=== PATIENT | female | born 1960 | race Caucasian/White ===

== ENCOUNTER 2016-10-12 05:43 | Emergency (ER) | payer BC, OTHER ==
[2016-10-12 05:51] VITALS: PULSE 85; TEMP 98.1
[2016-10-12] MEDS ORDERED: NS 1,000 ML IV ONE (05:52)
[2016-10-12] MEDS ORDERED: MECLIZINE HCL 25 MG TAB PO ONE (05:53)
[2016-10-12] MEDS ORDERED: DIAZEPAM 10 MG/2 ML SYR IVP ONE (05:53)
--- NOTE | 2016-10-12 05:57 | EDPHY ---
H & P Stated Complaint: Nausea/Vertigo Source: Patient - Personal History Current Tetanus/Diphtheria Vaccine: Unsure Current Tetanus Diphtheria and Acellular Pertussis (TDAP): Unsure - Medical/Surgical History Hx Asthma: No Hx Chronic Respiratory Disease: No Hx Diabetes: No Hx Cardiac Disease: No Hx Renal Disease: No Hx Cirrhosis: No Hx Alcoholism: No Hx HIV/AIDS: No Hx Splenectomy or Spleen Trauma: No Other PMH: None stated. - Social History Smoking Status: Former smoker HPI/ROS: HPI CHIEF COMPLAINT: Dizziness with associated nausea HISTORY OF PRESENT ILLNESS: This patient very pleasant 56-year-old female hormone replacement while otherwise healthy does not take any daily medications except hormones and vitamins, she denies ever having history of hypertension cardiovascular disease or stroke. She presents emergency room by EMS for dizziness. She describes as room spinning. She states this woke her from sleep around 2 o'clock 230 in the morning suddenly. It is worse with head movement. No ringing in her ears. She rather severe with associated nausea but no vomiting. Additionally she tells me she has some posterior neck pain associated with that no headache. No double vision. Additionally she tells me her jaw felt tight. No chest pain or shortness of breath. The dizziness persisted for worse with head movement or any direction of movement of her head. She has had this happen to her approximately a month ago but was never seen by a medical provider. She could not get the roof top spinning so she decided call 911. She arrived in the emergency room with ongoing dizziness. From a private residence. Past Medical History: Hormone replacement and daily vitamin use Past Surgical History: No recent surgery Social History: Denies daily use drugs alcohol tobacco products. Family History: Noncontributory ROS REVIEW OF SYSTEMS: A comprehensive 10 point review of systems is otherwise negative aside from elements mentioned in the history of present illness. Exam Constitutional anxious, triage nursing summary reviewed, vital signs reviewed, awake/alert. Eyes normal conjunctivae and sclera, EOMI, PERRLA. HENT normal inspection, atraumatic, moist mucus membranes, no epistaxis, neck supple/ no meningismus, no raccoon eyes. Respiratory clear to auscultation bilaterally, normal breath sounds, no respiratory distress, no wheezing. Cardiovascular rate normal, regular rhythm, no murmur, no edema, distal pulses normal. Gastrointestinal soft, non-tender, no rebound, no guarding, normal bowel sounds, no distension, no pulsatile mass. Genitourinary no CVA tenderness. Musculoskeletal no midline vertebral tenderness, full range of motion, no calf swelling, no tenderness of extremities, no meningismus, good pulses, neurovascularly intact. Skin pink, warm, & dry, no rash, skin atraumatic. Neurologic awake, alert and oriented x 3, AAOx3, moves all 4 extremities equally, motor intact, sensory intact, CN II-XII intact, normal cerebellar, normal vision, normal speech. No nystagmus. Psychiatric normal mood/affect. Heme/Lymph/Immune no lymphadenopathy. Differential Diagnosis: Includes but is not limited to in a particular order acute positional vertigo, Meniere's disease, posterior circulation stroke Medical Decision Making: Given this patient's having posterior neck pain and dizziness most likely benign positional vertigo however given the neck pain and severe dizziness will perform CT angiogram head and neck. She will be medicated with IV fluids and Valium 2.5 mg of meclizine 25 mg. Check electrolytes. And re-evaluate. Re-evaluation: EKG interpretation by me on record in [facility] system. Impression time of EKG 6:08 a.m., this is sinus rhythm rate of 73, do not appreciate acute ischemic changes there is T-wave inversion in V2. No ST elevation. Normal intervals. Otherwise unremarkable EKG. 0650AM: I did re-evaluate the patient at this time she is feeling better and meclizine and Valium. She still does have vertiginous symptoms with head movement. I felt that it would be reasonable to admit her for vertigo. Her CT angiogram head and neck are pending at this time. She does tell me she is a [facility] patient will check with [facility] this see if they are okay with her being admitted here. 0711AM: Did re-evaluate the patient at this time. She was up ambulating to the bathroom and felt comfortable. She would like to go home. Her CT angiogram still pending needs to be followed up. I will give prescription for meclizine and Valium. She declined hospital admission. I did speak with [facility] she declining transfer to another hospital or admission here. She tells me she feels better and would like to go home. She understands she should follow up with her primary care doctor. (Gilberto Burris) Constitutional: Initial Vital Signs Temperature (C) 36.7 C 10/12/16 05:48 Heart Rate 85 10/12/16 05:48 Respiratory Rate 18 10/12/16 05:48 Blood Pressure 135/93 H 10/12/16 05:48 O2 Sat (%) 98 10/12/16 05:48 O2 Delivery Mode Room Air Allergies/Adverse Reactions: codeine Allergy (Verified 10/12/16 05:52) gluten Allergy (Verified 10/12/16 05:52) Home Medications: Medication Instructions Recorded Estrogen,Con/M-Progest Acet 10/12/16 Meclizine HCl [Meclizine HCl 25 mg 25 mg PO BID #0 tab 10/12/16 (RX,OTC)] Meclizine HCl [Meclizine HCl 25 mg 25 mg PO BID #15 tab 10/12/16 (RX,OTC)] TESTOSTERONE 10/12/16 Medical Decision Making ED Course/Re-evaluation: [address] Burris pending CT angiogram results. If these are negative patient will be discharged home with outpatient follow-up. 0725 CT angiogram of the head neck is negative for acute vertebral artery dissection or other pathological process at this time. Patient will be discharged per Dr. Burris plan. (Ángel Luong) - Data Points Laboratory Results: Laboratory Results 10/12/16 Unknown 10/12/16 Unknown 10/12/16 10/12/16 10/12/16 Unknown Unknown Unknown WBC 7.41 10^3/uL 10^3/uL (3.80-9.50) RBC 4.58 10^6/uL 10^6/uL (4.18-5.33) Hgb 14.8 g/dL g/dL (12.6-16.3) POC Hgb Hct 44.8 % % (38.0-47.0) POC Hct MCV 97.8 fL fL (81.5-99.8) MCH 32.3 pg pg (27.9-34.1) MCHC 33.0 g/dL g/dL (32.4-36.7) RDW 13.0 % % (11.5-15.2) Plt Count 226 10^3/uL 10^3/uL (150-400) MPV 10.9 fL fL (8.7-11.7) Neut % (Auto) 45.9 % % (39.3-74.2) Lymph % (Auto) 43.5 % % (15.0-45.0) [place] % (Auto) 7.2 % % (4.5-13.0) Eos % (Auto) 2.2 % % (0.6-7.6) Baso % (Auto) 0.9 % % (0.3-1.7) Nucleat RBC Rel Count 0.0 % % (0.0-0.2) Absolute Neuts (auto) 3.41 10^3/uL 10^3/uL (1.70-6.50) Absolute Lymphs (auto) 3.22 10^3/uL H 10^3/uL (1.00-3.00) Absolute Monos (auto) 0.53 10^3/uL 10^3/uL (0.30-0.80) Absolute Eos (auto) 0.16 10^3/uL 10^3/uL (0.03-0.40) Absolute Basos (auto) 0.07 10^3/uL 10^3/uL (0.02-0.10) Absolute Nucleated RBC 0.00 10^3/uL 10^3/uL (0-0.01) Immature Gran % 0.3 % % (0.0-1.1) Immature Gran # 0.02 10^3/uL 10^3/uL (0.00-0.10) PT 11.7 SEC L SEC (12.0-15.0) INR 0.87 (0.83-1.16) APTT 30.1 SEC SEC (23.0-38.0) POC Sodium Sodium 142 mEq/L mEq/L (134-144) POC Potassium Potassium 4.0 mEq/L mEq/L (3.5-5.2) POC Chloride Chloride 104 mEq/L mEq/L (97-110) Carbon Dioxide 25 mEq/l mEq/l (22-31) Anion Gap 13 mEq/L mEq/L (8-16) POC BUN BUN 18 mg/dL mg/dL (7-23) Creatinine 0.9 mg/dL mg/dL (0.6-1.0) POC Creatinine Estimated GFR > 60 Glucose 100 mg/dL mg/dL (70-100) POC Glucose Calcium 9.6 mg/dL mg/dL (8.5-10.4) Magnesium 2.0 mg/dL mg/dL (1.6-2.3) Total Bilirubin 0.4 mg/dL mg/dL (0.1-1.4) Conjugated Bilirubin 0.3 mg/dL mg/dL (0.0-0.5) Unconjugated Bilirubin 0.1 mg/dL mg/dL (0.0-1.1) AST 26 IU/L IU/L (14-46) ALT 32 IU/L IU/L (9-52) Alkaline Phosphatase 53 IU/L IU/L (38-126) Troponin I < 0.012 ng/mL ng/mL (0.000-0.034) NT-Pro-B Natriuret Pep 33 pg/mL pg/mL (0-125) Total Protein 7.2 g/dL g/dL (6.3-8.2) Albumin 4.4 g/dL g/dL (3.5-5.0) Urine Color Urine Appearance Urine pH Ur Specific [place] Urine Protein Urine Ketones Urine Blood Urine Nitrate Urine Bilirubin Urine Urobilinogen Ur Leukocyte Esterase Urine Glucose 10/12/16 10/12/16 07:03 05:52 WBC RBC Hgb POC Hgb 15.3 gm/dL gm/dL (12.6-16.3) Hct POC Hct 45 % % (38-47) MCV MCH MCHC RDW Plt Count MPV Neut % (Auto) Lymph % (Auto) [place] % (Auto) Eos % (Auto) Baso % (Auto) Nucleat RBC Rel Count Absolute Neuts (auto) Absolute Lymphs (auto) Absolute Monos (auto) Absolute Eos (auto) Absolute Basos (auto) Absolute Nucleated RBC Immature Gran % Immature Gran # PT INR APTT POC Sodium 143 mEq/L mEq/L (134-144) Sodium POC Potassium 3.7 mEq/L mEq/L (3.3-5.0) Potassium POC Chloride 103 mEq/L mEq/L (97-110) Chloride Carbon Dioxide Anion Gap POC BUN 19 mg/dL mg/dL (7-23) BUN Creatinine POC Creatinine 1.0 mg/dL mg/dL (0.6-1.0) Estimated GFR Glucose POC Glucose 108 mg/dL H mg/dL (70-100) Calcium Magnesium Total Bilirubin Conjugated Bilirubin Unconjugated Bilirubin AST ALT Alkaline Phosphatase Troponin I NT-Pro-B Natriuret Pep Total Protein Albumin Urine Color PALE YELLOW Urine Appearance CLEAR Urine pH 6.0 (5.0-7.5) Ur Specific [place] 1.033 H (1.002-1.030) Urine Protein NEGATIVE (NEGATIVE) Urine Ketones NEGATIVE (NEGATIVE) Urine Blood NEGATIVE (NEGATIVE) Urine Nitrate NEGATIVE (NEGATIVE) Urine Bilirubin NEGATIVE (NEGATIVE) Urine Urobilinogen NEGATIVE EU EU (0.2-1.0) Ur Leukocyte Esterase NEGATIVE (NEGATIVE) Urine Glucose NEGATIVE (NEGATIVE) Medications Given: Discontinued Medications Diazepam (Valium Injection) 2.5 mg IVP EDNOW ONE Stop: 10/12/16 05:54 Last Admin: 10/12/16 06:08 Dose: 2.5 mg Sodium Chloride (Ns) 1,000 mls @ 0 mls/hr IV EDNOW ONE; Wide Open PRN Reason: Protocol Stop: 10/12/16 05:53 Last Admin: 10/12/16 06:08 Dose: 1,000 mls Meclizine HCl (Meclizine Hcl) 25 mg PO EDNOW ONE Stop: 10/12/16 05:54 Last Admin: 10/12/16 06:07 Dose: 25 mg Point of Care Test Results: 10/12/16 05:52 POC Sodium 143 POC Potassium 3.7 POC Chloride 103 POC BUN 19 POC Creatinine 1.0 POC Glucose 108 H Departure - Departure Disposition: Home, Routine, Self-Care Clinical Impression: Vertigo Condition: Fair Instructions: Vertigo (ED) Additional Instructions: 1. Return to the emergency room if he develops worsening dizziness, vomiting or headache or neck pain. 2. Please follow up with her primary care doctor. Referrals: Patient,NotPresent [Unknown] - As per Instructions Prescriptions: Meclizine HCl [Meclizine HCl 25 mg (RX,OTC)] 25 mg PO BID #0 tab Meclizine HCl [Meclizine HCl 25 mg (RX,OTC)] 25 mg PO BID #15 tab
[2016-10-12] MEDS ORDERED: IOPAMIDOL (ISOVUE 370) 100 ML BTL IV ONE ×2 (06:04→06:33)
--- NOTE | 2016-10-12 06:05 | CPEKG ---
Heart Rate: 73 RR Interval: 822 P-R Interval: 156 QRSD Interval: 72 QT Interval: 404 QTC Interval: 446 P [place]: 72 QRS [place]: 53 T Wave [place]: 41 EKG Severity - NORMAL ECG - EKG Impression: SINUS RHYTHM Electronically Signed By: Surjit Gibbons 18-Oct-2016 16:56:43
[2016-10-12 06:10] LABS: % IMMATURE GRANULYOCYTES 0.3 % (0.0-1.1); ABSOLUTE IMMATURE GRANULOCYTES 0.02 10^3/uL (0.00-0.10); ADD DIFF? NO; ADD MORPH? NO; ADD SCAN? NO; ATYPICAL LYMPHOCYTE FLAG 10 (0-99); FRAGMENT RBC FLAG 0 (0-99); HEMATOCRIT 44.8 % (38.0-47.0); HEMOGLOBIN 14.8 g/dL (12.6-16.3); LEFT SHIFT FLG 0 (0-99); LIPEMIA HEMOLYSIS FLAG 80 (0-99); MEAN CELL HEMOGLOBIN 32.3 pg (27.9-34.1); MEAN CELL VOLUME 97.8 fL (81.5-99.8); MEAN PLATELET VOLUME 10.9 fL (8.7-11.7); PLATELET CLUMPS FLAG 30 (0-99); PLATELET COUNT 226 10^3/uL (150-400); RED BLOOD CELL COUNT 4.58 10^6/uL (4.18-5.33)
[2016-10-12 06:21] LABS: ALANINE AMINOTRANSFERASE 32 IU/L (9-52); ALBUMIN 4.4 g/dL (3.5-5.0); ALKALINE PHOSPHATASE 53 IU/L (38-126); ANION GAP 13 mEq/L (8-16); ASPARTATE AMINOTRANSFERASE 26 IU/L (14-46); BILIRUBIN,TOTAL 0.4 mg/dL (0.1-1.4); BILIRUBIN-CONJUGATED 0.3 mg/dL (0.0-0.5); BILIRUBIN-UNCONJUGATED 0.1 mg/dL (0.0-1.1); CALCIUM 9.6 mg/dL (8.5-10.4); CARBON DIOXIDE 25 mEq/l (22-31); CHLORIDE 104 mEq/L (97-110); CREATININE 0.9 mg/dL (0.6-1.0); GLOMERULAR FILTRATION RATE > 60; GLUCOSE 100 mg/dL (70-100); SODIUM 142 mEq/L (134-144); TOTAL PROTEIN 7.2 g/dL (6.3-8.2)
[2016-10-12 06:25] LABS: INR 0.87 (0.83-1.16); PROTIME(PATIENT) 11.7 SEC (12.0-15.0)
[2016-10-12 06:26] LABS: APTT 30.1 SEC (23.0-38.0)
[2016-10-12 06:32] LABS: TROPONIN I < 0.012 ng/mL (0.000-0.034)
[2016-10-12 06:57] VITALS: BP 115/68; RESP 16; O2SAT 96
[2016-10-12 07:13] LABS: COLOR PALE YELLOW; LEUKOCYTE ESTERASE,URINE NEGATIVE (NEGATIVE); NITRITE,URINE NEGATIVE (NEGATIVE)
== END 2016-10-12 07:54 | disposition home or self-care (01) ==
LOC: EDUNIT#
DX: R42 Dizziness and giddiness (principal); E86.9 Volume depletion, unspecified; Z87.891 Personal history of nicotine dependence
CPT/HCPCS: 82947-QW; 96374; Q9967